=== PATIENT | female | born 1980 | race Caucasian/White ===

== ENCOUNTER 2025-07-10 11:22 | Day surgery (SDC) | payer BC ==
[2025-07-10] VITALS (17 sets, daily range): BP systolic 96–134; BP diastolic 53–87; PULSE 67–84; RESP 12–32; TEMP 98.3; O2SAT 94–99
[~2025-07-10] VITALS: Ht 162.6 cm; Wt 135.0 kg
[2025-07-10] MEDS ORDERED: ACET-1008 PO (12:09)
[2025-07-10] MEDS: ceFAZolin 2gm/dext,iso 50mL 50 ML IV STA (12:48)
[2025-07-10] MEDS: ringers solution, lacted 1,000 ML IV SCH (12:48)
[2025-07-10] MEDS ORDERED: ceFAZolin/D5W- 1GM premix 50 ML IV ONE (13:00)
[2025-07-10] MEDS ORDERED: bacitracin 15gm ointment TP ONE (13:29)
[2025-07-10] MEDS ORDERED: ringers solution, lacted 1,000 ML IV SCH (13:40)
[2025-07-10] MEDS ORDERED: enalaprilat 1.25mg/ml 2ml vial IV PRN (13:40)
[2025-07-10] MEDS ORDERED: ondansetron/PF 4mg/2ml inj IV PRN (13:40)
[2025-07-10] MEDS ORDERED: meperidine/PF 25mg/ml syringe IV PRN ×3 (13:40)
[2025-07-10] MEDS ORDERED: labetalol 20mg/4ml (5mg/ml) syringe IV PRN (13:40)
[2025-07-10] MEDS ORDERED: MIDAZolam 1 MG/ML 5ML VIAL ONE (14:45)
[2025-07-10] MEDS ORDERED: fentaNYL/PF 50MCG/1 ML 2ML syringe ONE (14:45)
[2025-07-10] MEDS ORDERED: BUPIVAcaine/PF 7.5mg/ml (0.75%) 10ml vial ONE (14:46)
[2025-07-10] MEDS ORDERED: ROPIVAcaine 0.5% (5mg/ml) 30ml vial ONE (14:46)
[2025-07-10] MEDS ORDERED: propofol inj 20 ML IV ONE ×2 (14:47→15:30)
[2025-07-10] MEDS ORDERED: LIDOcaine 1%/PF 5ML 10 MG/ML VIAL ONE (14:47)
[2025-07-10] MEDS ORDERED: cloNIDine hcl/PF 100mcg/ml inj ONE (14:50)
--- NOTE | 2025-07-10 15:58 | ANESTHESIA RECORDS ---
Nerve Block Providers to CC ~ Diagnosis: Nerve Block requested by: WALT JAIMES DPGalina Neuraxial/Peripheral Nerve Block requested for Post-operative analgesia by Physician above DIAGNOSIS: Post-operative pain. (Body Area) Shoulder: [ ] Arm: [ ] Hand: [ ] Hip: [ ] Knee: [ ] Ankle: [ Left ] Foot: [ Left ] Leg: [ Left ] Abdomen: [ ] Other: [ ] Post-operative pain expected to be/is inadequately managed by oral or IV medicines. Regional anesthetic expected to facilitate rehabilitation and/or discharge from facility. Other:[__ ] Procedure Performed: Femoral / Saphenous: Left Popliteal Lateral: Left Time out Done?: Yes Time of Time out: 14:45 Procedure Details: PROCEDURE DETAILS: Risks, benefits and alternatives explained Informed consent obtained, and patient wishes to proceed Conscious sedation with indicated monitors Patient positioned, pertinent anatomy defined, sterile technique used Needle used: [ ] 3 1/8 inch Stimuplex Ultra 22ga [x ] 4 inch Stimuplex Ultra 20ga [ ] 6 inch Stimuplex Ultra 20ga [ ] 6 inch, Quikbl[place] over the needle catheter set 20ga [ ] 4 inch Quikbloc over the needle catheter set 20ga [ ]Other: [ ] Loss of twitch @ [___0.5 ]mA [x ] Single Injection [ ] Catheter Ultrasound Guidance Used: [ ] Yes [ ] No Attempts:[ once ] Medicines injected: [x ]Clonidine Amt:[ 100 mcgs ] [x ]Dexamethasone Amt:[____4 mgs ] [x ]Ropivacaine Amt:[___0.5% 30 cc ] [x ]Bupivacaine Amt:[___O.35% 18 cc ] [ ]Lidocaine Amt:[ ] [ ]Exparel 1.33%:[ ] [ ]Epinephrine Amt[ ] [ ]Other: [ ] Intermittent aspiration during local anesthetic administration No symptoms of intraneural or intravenous injection Patient tolerated procedure well Comments Left Popliteal fossa Block Pt in Rt lateral position with Left Leg flexed at 90 Degrees. Lateral approach. Ultrasound probe placed back of thigh 2 inches above the knee joint. Easy visualization of the Sciatic nerve. 1% xylocaine local anesthetic. Easy visualization of Spreading of local anesthetic anterior and posterior to the Sciatic nerve sub paraneurally inside sciatic nerve sheath. Meaningful conversation t throughout. No Pain or discomfort during injection. Lt Adductor Canal blk Procedure done before surgery under General anesthesia. Pt supine with Lt leg rotated to Lt slightly. Easy visualization of Adductor Canal with ultra sound anterolateral to Femoral artery at the junction of upper and middle third of thigh. Able to see the tip of the needle and injected local anesthetic with the ultrasound. IVÁN JIMENEZ MD Jul 10, 2025 15:58
[2025-07-10] MEDS ORDERED: acetaminophen 1,000mg/100ml IV 100 ML IV ONE (17:11)
[2025-07-10] MEDS ORDERED: ondansetron/PF 4mg/2ml inj ONE (17:11)
[2025-07-10] MEDS ORDERED: fentaNYL/PF 50MCG/1 ML 2ML syringe IV PRN (18:20)
[2025-07-10] MEDS: ketorolac trometh 30MG/ML vial 30 MG/ML VIAL IV ONE (18:29)
[2025-07-10] MEDS: fentaNYL/PF 50MCG/1 ML 2ML syringe IV PRN (19:01)
== END 2025-07-10 20:28 | disposition home or self-care (01) ==
LOC: PAS 11:22
PROVIDERS: ATTEND Podiatrist Foot & Ankle Surgery
DX: M21.42 Flat foot [pes planus] (acquired), left foot (principal); M76.822 Posterior tibial tendinitis, left leg; M72.2 Plantar fascial fibromatosis; M79.672 Pain in left foot; G89.18 Other acute postprocedural pain; E66.9 Obesity, unspecified; J45.909 Unspecified asthma, uncomplicated; G47.30 Sleep apnea, unspecified; Z79.1 Long term (current) use of non-steroidal anti-inflammatories (NSAID); Z79.82 Long term (current) use of aspirin; Z79.891 Long term (current) use of opiate analgesic; Z79.899 Other long term (current) drug therapy; Z90.49 Acquired absence of other specified parts of digestive tract; Z98.891 History of uterine scar from previous surgery; Z68.43 Body mass index [BMI] 50.0-59.9, adult; Z88.5 Allergy status to narcotic agent; Z88.8 Allergy status to other drugs, medicaments and biological substances
CPT/HCPCS: 20900; 27687; 28238; 28300; 64445; 64447; 73620; 82948; A6223; C1713; C1776; J0131; J0690; J0735; J1100; J1885; J2250; J2405; J2704; J2795; J3010; J3490; J7030; J7120; Z7506; Z7508; Z7512; 76000; A4215; A4618; A6449; A7000